=== PATIENT | female | born 1980 | race Caucasian/White ===

== ENCOUNTER 2017-09-06 12:14 | Emergency (ER) | payer BC, OTHER ==
--- NOTE | 2017-09-06 13:53 | EDM.PDOC ---
ED HPI GENERAL MEDICAL PROBLEM - General Chief Complaint: Cardiovascular Problem Stated Complaint: R LEG HAS BLOODCLOT Time Seen by Provider: 09/06/17 12:21 Source of Information: Reports: Patient History Limitations: Reports: No Limitations - History of Present Illness INITIAL COMMENTS - FREE TEXT/NARRATIVE: The patient presents with right leg pain and edema. She is currently 10weeks gestation with a LNMP of around June 23. She is . She had an US done last Tuesday in [place] and she was found to have superficial thrombophlebitis. She was not put on any meds just conservative treatment. She has noticed more pain and edema. She has a history of vericose veins and one of them is palpable in the lower leg. She has no chest pain or shortness of breath. She has no history of DVT. 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: Other (see below) Other Treatments OIL AND GAS SUPERINTENDENT: none Right Leg Pain Score (Numeric/FACES): 8 - Related Data Allergies Allergy/AdvReac Type Severity Reaction Status Date / Time Sulfa (Sulfonamide Allergy Rash Verified 09/06/17 12:26 Antibiotics) Home Meds: Home Meds Venlafaxine [Effexor] 75 mg PO DAILY 09/06/17 [History] Past Medical History Psychiatric History: Reports: Anxiety - Past Surgical History GI Surgical History: Reports: Cholecystectomy Social & Family History - Tobacco Use Smoking Status *Q: Never Smoker - Caffeine Use Caffeine Use: Reports: Coffee, Soda - Recreational Drug Use Recreational Drug Use: No ED ROS GENERAL - Review of Systems Review Of Systems: See Below Constitutional: Reports: No Symptoms HEENT: Reports: No Symptoms Respiratory: Reports: No Symptoms Cardiovascular: Reports: No Symptoms Endocrine: Reports: No Symptoms GI/Abdominal: Reports: No Symptoms : Reports: No Symptoms Musculoskeletal: Reports: Other (Right leg edema and pain) ED EXAM, GENERAL - Physical Exam Exam: See Below Exam Limited By: No Limitations General Appearance: Alert, No Apparent Distress Ears: Normal External Exam Nose: Normal Inspection Head: Atraumatic, Normocephalic Neck: Normal Inspection Respiratory/Chest: No Respiratory Distress, Lungs Clear, Normal Breath Sounds Cardiovascular: Regular Rate, Rhythm, No Edema, No Murmur GI/Abdominal: Soft, Non-Tender, No Organomegaly, No Mass Back Exam: Normal Inspection Extremities: Other (Palpable vericose vein in the right lower leg that is warm but there is no erythema. Mild edema to her right leg.) Course - Vital Signs Last Recorded V/S: Last Vital Signs Temp 99.2 F 09/06/17 12:21 Pulse 84 09/06/17 12:21 Resp 20 09/06/17 12:21 BP 120/76 09/06/17 12:21 Pulse Ox 98 09/06/17 12:21 - Orders/Labs/Meds Labs: Laboratory Tests 09/06/17 Range/Units 12:50 HCG, Quant 50087.0 mIU/mL - Re-Assessments/Exams Free Text/Narrative Re-Assessment/Exam: 09/06/17 13:53 I ordered an US of her right leg and HCG. 09/06/17 14:41 Her quant HCG was 64,836. The US shows findings compatible with superficial thrombophlebitis within the medial right calf. No evidence of deep venous thrombosis is seen within the right lower extremity. I called Dr Noonan out OB/ [facility] doctor utilization engineer and he recommended the compression stockings and it was okay to start aspirin. Departure - Departure Time of Disposition: 14:55 Disposition: Home, Self-Care 01 Condition: Good Clinical Impression: Superficial thrombophlebitis during in first trimester Referrals: Lata Murphy NP [Primary Care Provider] - Davis Noonan MD [Physician] - 1 Week Forms: ED Department Discharge Additional Instructions: Wear the compression stockings as much as you can. Take 81mg of aspirin daily. Follow up with Dr Noonan in 1 week. Please return if you are worse such as more swelling, chest pain or shortness of breath.
--- NOTE | 2017-09-06 14:33 | US ---
Right lower extremity deep venous ultrasound: Duplex and color flow imaging was obtained of the right common femoral, proximal greater saphenous, superficial femoral, popliteal and posterior tibial veins. Findings: Superficial veins are identified within the medial calf showing evidence of thrombosis which is consistent with superficial thrombophlebitis. Deep veins show normal phasic flow, augmentation and compression. Impression: 1. Findings compatible with superficial thrombophlebitis within the medial right calf. 2. No evidence of deep venous thrombosis is seen within the right lower extremity. Diagnostic code #3
== END 2017-09-06 15:05 | disposition home or self-care (01) ==
LOC: MERGE 12:14 → JD.ED 12:14
DX: O22.21 Superficial thrombophlebitis in pregnancy, first trimester (principal); Z88.2 Allergy status to sulfonamides; Z3A.10 10 weeks gestation of pregnancy
CPT/HCPCS: 36415; 84702; 93971-26-RT; 93971-RT; 99283; 99284-25

== ENCOUNTER 2017-10-26 01:36 | Inpatient (IN) | payer OTHER ==
[2017-10-26] MEDS ORDERED: Misoprostol 200 MCG Tab VAG ONE (11:15)
[2017-10-26] MEDS ORDERED: Misoprostol 200 MCG Tab ONE (19:10)
[2017-10-26] MEDS ORDERED: Misoprostol 200 MCG Tab PO ONE (19:20)
[2017-10-26] MEDS ORDERED: Misoprostol 25 MCG (1/4 of 100 MCG) Tab VAG ONE (19:24)
[2017-10-26] MEDS ORDERED: Misoprostol 200 MCG Tab PO STA (19:42)
[2017-10-26] MEDS ORDERED: Sodium Chloride 0.9% 10 ML Syringe FLUSH PRN (19:43)
[2017-10-26] MEDS ORDERED: Ondansetron 4 MG/2 ML SDV IVPUSH PRN (19:43)
[2017-10-26] MEDS ORDERED: Sodium Chloride 0.9% 1,000 ML IV SCH (19:45)
--- NOTE | 2017-10-26 19:46 | PCM.LDHP ---
L&D History of Present Illness - General Date of Service: 10/26/17 Admit Problem/Dx: Patient Status Order with Admit Dx/Problem 10/26/17 19:43 Patient Status [ADT] Routine Admission Diagnosis/Problem Admission Diagnosis/Problem demise due to miscarriage Source of Information: Patient History Limitations: Reports: No Limitations - History of Present Illness Introduction:: Patient is a 37 y/o at ~16 weeks gestation who presents for IOL for demise. Doing well since last seen in clinic. Some cramping, but no bleeding. 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 (Approximate): Psychiatric History: Reports: Anxiety - Past Surgical History GI Surgical History: Reports: Cholecystectomy Social & Family History - Tobacco Use Smoking Status *Q: Never Smoker - Caffeine Use Caffeine Use: Reports: Coffee, Soda - Alcohol Use Alcohol Use History: No - Recreational Drug Use Recreational Drug Use: No H&P Review of Systems - Review of Systems: Review Of Systems: See Below General: Reports: No Symptoms Pulmonary: Reports: No Symptoms Cardiovascular: Reports: No Symptoms Gastrointestinal: Reports: No Symptoms Genitourinary: Reports: No Symptoms Musculoskeletal: Reports: No Symptoms Psychiatric: Reports: No Symptoms L&D Exam - Exam Exam: See Below - Vital Signs Vital Signs: Last Vital Signs Temp 36.9 C 10/26/17 19:14 Pulse 83 10/26/17 19:14 Resp 16 10/26/17 19:14 BP 119/64 10/26/17 19:14 Pulse Ox 100 10/26/17 19:14 Weight: 84.414 kg - Flood Score Flood Score Cervix Position: Posterior Flood Score Consistency: Medium Flood Score Dilation: Closed - Exam General: Alert, Oriented, Cooperative Lungs: Clear to Auscultation, Normal Respiratory Effort Cardiovascular: Regular Rate, Regular Rhythm GI/Abdominal Exam: Soft, Non-Tender Genitourinary: Normal external exam Extremities: Normal Inspection Skin: Warm, Dry, Intact - Patient Data Result Diagrams: 10/26/17 19:43 - Problem List (1) demise before 20 weeks with retention of fetus SNOMED Code(s): 526380900 ICD Code: O02.1 - MISSED Status: Acute Problem List Initiated/Reviewed/Updated: Yes Orders Last 24hrs: Active Orders 24 hr Category Date Time Status Patient Status [ADT] Routine ADT 10/26/17 19:43 Ordered Peripheral IV Care [RC] . DIRECTED Care 10/26/17 19:45 Ordered Vital Signs [RC] PER UNIT ROUTINE Care 10/26/17 19:43 Ordered Regular Diet [DIET] Diet 10/27/17 Breakfast Ordered CBC W/O DIFF,HEMOGRAM [HEME] Routine Lab 10/26/17 19:43 Ordered TYPE AND SCREEN [BBK] Routine Lab 10/26/17 19:43 Ordered Ondansetron [Zofran] Med 10/26/17 19:43 Ordered 4 mg IVPUSH Q6H PRN Sodium Chloride 0.9% @ 125 MLS/HR (1,000ml) Med 10/26/17 19:45 Ordered Sodium Chloride 0.9% [Normal Saline] 1,000 ml IV ASDIRECTED Sodium Chloride 0.9% [Saline Flush] Med 10/26/17 19:43 Ordered 10 ml FLUSH ASDIRECTED PRN miSOPROStol [Cytotec] Med 10/26/17 23:30 Ordered 400 mcg VAG Q4H miSOPROStol [Cytotec] Med 10/26/17 19:42 Stat 600 mcg PO NOW STA Peripheral IV Insertion Adult [OM.PC] Routine Oth 10/26/17 19:43 Ordered Medication Orders Sodium Chloride (Normal Saline) 1,000 mls @ 125 mls/hr IV ASDIRECTED JOI Misoprostol (Cytotec) 600 mcg PO NOW STA Stop: 10/26/17 19:43 Misoprostol (Cytotec) 400 mcg VAG Q4H JOI Ondansetron HCl (Zofran) 4 mg IVPUSH Q6H PRN PRN Reason: Nausea/Vomiting Sodium Chloride (Saline Flush) 10 ml FLUSH ASDIRECTED PRN PRN Reason: Keep Vein Open Assessment/Plan Comment:: 37 y/o at ~16 wks presents for IOL for demise. Aware of risks of IOL including failed induction and retained placenta requiring D&C. Desires to proceed. IOL to be done with Cytotec. Pain control per patient preference. Declines work up for loss.
[2017-10-26] MEDS ORDERED: Acetaminophen/oxyCODONE 325-5 MG Tab PO PRN (22:32)
[2017-10-26] MEDS ORDERED: Misoprostol 200 MCG Tab VAG SCH (23:30)
[2017-10-26] MEDS: Morphine 4 MG/ML Syringe IVPUSH PRN (23:49)
[2017-10-27] MEDS: Morphine 4 MG/ML Syringe IVPUSH PRN (00:18)
[2017-10-27] MEDS ORDERED: Misoprostol 200 MCG Tab VAG SCH (01:30)
[2017-10-27] MEDS ORDERED: Misoprostol 200 MCG Tab ONE (01:35)
[2017-10-27] MEDS ORDERED: Misoprostol 200 MCG Tab PO ONE (01:37)
--- NOTE | 2017-10-27 02:12 | PCM.DEL ---
L & D Note - General Info Date of Service: 10/27/17 - Delivery Note Cervical Ripening Method: Misoprostil Delivery Outcome: Miscarriage (16 weeks) Infant Delivery Method: Spontaneous Vaginal Delivery-Single Delivery Mode: Spontaneous Episiotomy Type: None Laceration: None Placenta: Spontaneous Estimated Blood Loss: 250 Delivery Comments (Free Text/Narrative):: Patient with complaints of pressure. SVE done and with bulging BOW which was incidentally ruptured. parts still felt to be high at that time. Allowed patient to continue to labor about another hour and then again felt increasing urge to push. SVE still difficult to assess, but patient instructed to attempt pushing. Baby delivered with one push intact. Cord cut and baby handed to patient. Patient given 600 mcg of buccal cytotec. After approximately 30 minutes again felt the urge to push and placenta able to be expelled intact. Exam showed no lacerations. - General Info Date of Service: 10/27/17 - Patient Data Vitals - Most Recent: Last Vital Signs Temp 36.9 C 10/26/17 19:14 Pulse 83 10/26/17 19:14 Resp 16 10/26/17 19:14 BP 119/64 10/26/17 19:14 Pulse Ox 100 10/26/17 19:14 Weight - Most Recent: 84.414 kg Lab Results Last 24 Hours: Laboratory Results - last 24 hr 10/26/17 10/26/17 Range/Units 19:43 20:02 WBC 6.85 (3.98-10.04) K/mm3 RBC 3.92 L (3.98-5.22) M/mm3 Hgb 12.3 (11.2-15.7) gm/L Hct 36.1 (34.1-44.9) % MCV 92.1 (79.4-94.8) fl MCH 31.4 (25.6-32.2) pg MCHC 34.1 (32.2-35.5) g/dl RDW Std Deviation 41.5 (36.4-46.3) fL Plt Count 206 (182-369) K/mm3 MPV 10.5 (9.4-12.3) fl Blood Type O POSITIVE Gel Antibody Screen Negative Med Orders - Current: Current Medications Sodium Chloride (Normal Saline) 1,000 mls @ 125 mls/hr IV ASDIRECTED JOI Misoprostol (Cytotec) 400 mcg VAG Q4H JOI Morphine Sulfate (Morphine) 4 mg IVPUSH Q4H PRN PRN Reason: Pain Last Admin: 10/27/17 00:18 Dose: 2 mg Ondansetron HCl (Zofran) 4 mg IVPUSH Q6H PRN PRN Reason: Nausea/Vomiting Oxycodone/Acetaminophen (Percocet 325-5 Mg) 1 - 2 tab PO Q6H PRN PRN Reason: Pain Sodium Chloride (Saline Flush) 10 ml FLUSH ASDIRECTED PRN PRN Reason: Keep Vein Open Discontinued Medications Misoprostol (Cytotec) Confirm Administered Dose 600 mcg .ROUTE .STK-MED ONE Stop: 10/26/17 19:11 Last Admin: 10/26/17 19:52 Dose: Not Given Misoprostol (Cytotec) 400 mcg VAG Q4H JOI Misoprostol (Cytotec) 600 mcg VAG ONETIME ONE Stop: 10/26/17 19:25 Last Admin: 10/26/17 19:24 Dose: 600 mcg Misoprostol (Cytotec) Confirm Administered Dose 200 mcg .ROUTE .STK-MED ONE Stop: 10/27/17 01:36 Misoprostol (Cytotec) 600 mcg PO ONETIME ONE Stop: 10/27/17 01:38 Last Admin: 10/27/17 01:36 Dose: 600 mcg - Problem List & Annotations (1) demise before 20 weeks with retention of fetus SNOMED Code(s): 579243066 Code(s): O02.1 - MISSED Status: Acute - Problem List Review Problem List Initiated/Reviewed/Updated: Yes - My Orders Last 24 Hours: My Active Orders 10/26/17 19:43 Patient Status [ADT] Routine Vital Signs [RC] PER UNIT ROUTINE Ondansetron [Zofran] 4 mg IVPUSH Q6H PRN Sodium Chloride 0.9% [Saline Flush] 10 ml FLUSH ASDIRECTED PRN Peripheral IV Insertion Adult [OM.PC] Routine 10/26/17 19:45 Peripheral IV Care [RC] . DIRECTED Sodium Chloride 0.9% [Normal Saline] 1,000 ml IV ASDIRECTED 10/26/17 22:31 Morphine 4 mg IVPUSH Q4H PRN 10/26/17 22:32 Acetaminophen/oxyCODONE [Percocet 325-5 MG] 1 - 2 tab PO Q6H PRN 10/27/17 01:30 miSOPROStol [Cytotec] 400 mcg VAG Q4H 10/27/17 Breakfast Regular Diet [DIET] - Assessment Assessment:: PPD#0 from at 16 wks after IOL for demise - Plan Plan:: * Will have family spend time with baby. When ready will call home. * Discharge later today
[2017-10-27] MEDS ORDERED: Acetaminophen 325 MG Tab PO PRN (02:21)
[2017-10-27] MEDS ORDERED: Ibuprofen 600 MG Tab PO PRN (02:21)
--- NOTE | 2017-10-27 20:28 | PCM.DCSUM1 ---
Discharge Summary - Discharge Data Discharge Date: 10/27/17 Discharge Disposition: Home, Self-Care 01 Condition: Good - Discharge Diagnosis/Problem(s) (1) demise before 20 weeks with retention of fetus SNOMED Code(s): 404194180 ICD Code: O02.1 - MISSED Status: Acute - Patient Summary/Data Complications: None Consults: None Recommended Follow-up Testing/Procedures: Follow up in 3-4 weeks for check Hospital Course: Patient is a 37 y/o who presented at about 16 weeks for IOL for demise. This was done with cytotec. She responded to well and underwent uncomplicated delivery of baby. Buccal cytotec also given to aid in delivery of the placenta. This was also uncomplicated. Patient remained in house for a period of time following delivery and did well. She was discharged home later the same day. - Patient Instructions Diet: Regular Diet as Tolerated Activity: As Tolerated Activity, Other: Pelvic Rest for 6 weeks Showering/Bathing: May Shower Showering/Bathing, Other: May Bathe Notify Provider of: Fever, Increased Pain, Swelling and Redness, Drainage, Nausea and/or Vomiting - Discharge Plan *PRESCRIPTION DRUG MONITORING PROGRAM REVIEWED*: Not Applicable *COPY OF PRESCRIPTION DRUG MONITORING REPORT IN PATIENT MARIO: Not Applicable Home Medications: Home Meds Acetaminophen [Tylenol] 650 mg PO Q4H PRN tablet 10/27/17 [Rx] Ibuprofen [Motrin] 600 mg PO Q4H PRN tablet 10/27/17 [Rx] Patient Handouts: Vaginal Delivery, Loss, Care After Referrals: Mary Vega MD [Primary Care Provider] - (3-4 weeks ) - Discharge Summary/Plan Comment DC Time >30 min.: No - Patient Data Vitals - Most Recent: Last Vital Signs Temp 36.9 C 10/26/17 19:14 Pulse 75 10/27/17 05:30 Resp 16 10/26/17 19:14 BP 119/64 10/26/17 19:14 Pulse Ox 95 10/27/17 05:30 Weight - Most Recent: 84.414 kg Lab Results - Last 24 hrs: Laboratory Results - last 24 hr 10/26/17 10/26/17 Range/Units 19:43 20:02 WBC 6.85 (3.98-10.04) K/mm3 RBC 3.92 L (3.98-5.22) M/mm3 Hgb 12.3 (11.2-15.7) gm/L Hct 36.1 (34.1-44.9) % MCV 92.1 (79.4-94.8) fl MCH 31.4 (25.6-32.2) pg MCHC 34.1 (32.2-35.5) g/dl RDW Std Deviation 41.5 (36.4-46.3) fL Plt Count 206 (182-369) K/mm3 MPV 10.5 (9.4-12.3) fl Blood Type O POSITIVE Gel Antibody Screen Negative Med Orders - Current: Current Medications Discontinued Medications Acetaminophen (Tylenol) 650 mg PO Q4H PRN PRN Reason: mild pain or fever Sodium Chloride (Normal Saline) 1,000 mls @ 125 mls/hr IV ASDIRECTED JOI Ibuprofen (Motrin) 600 mg PO Q4H PRN PRN Reason: Mild pain or fever Last Admin: 10/27/17 02:39 Dose: 600 mg Misoprostol (Cytotec) Confirm Administered Dose 600 mcg .ROUTE .STK-MED ONE Stop: 10/26/17 19:11 Last Admin: 10/26/17 19:52 Dose: Not Given Misoprostol (Cytotec) 400 mcg VAG Q4H JOI Misoprostol (Cytotec) 400 mcg VAG Q4H JOI Last Admin: 10/27/17 05:04 Dose: Not Given Misoprostol (Cytotec) 600 mcg VAG ONETIME ONE Stop: 10/26/17 19:25 Last Admin: 10/26/17 19:24 Dose: 600 mcg Misoprostol (Cytotec) Confirm Administered Dose 200 mcg .ROUTE .STK-MED ONE Stop: 10/27/17 01:36 Last Admin: 10/27/17 05:04 Dose: Not Given Misoprostol (Cytotec) 600 mcg PO ONETIME ONE Stop: 10/27/17 01:38 Last Admin: 10/27/17 01:36 Dose: 600 mcg Morphine Sulfate (Morphine) 4 mg IVPUSH Q4H PRN PRN Reason: Pain Last Admin: 10/27/17 00:18 Dose: 2 mg Ondansetron HCl (Zofran) 4 mg IVPUSH Q6H PRN PRN Reason: Nausea/Vomiting Oxycodone/Acetaminophen (Percocet 325-5 Mg) 1 - 2 tab PO Q6H PRN PRN Reason: Pain Sodium Chloride (Saline Flush) 10 ml FLUSH ASDIRECTED PRN PRN Reason: Keep Vein Open
== END 2017-10-27 11:15 | disposition home or self-care (01) | DRG 779 ==
LOC: JD.OB 01:36 → OBSVTOIN 10-27 01:36 → JD.OB 10-27 01:37
PROVIDERS: ADMIT Obstetrics & Gynecology; ATTEND Obstetrics & Gynecology
PROC: 10E0XZZ Delivery of Products of Conception, External Approach (ICD-10-PCS; principal; 2017-10-27)
PROC: 3E0P7VZ Introduction of Hormone into Female Reproductive, Via Natural or Artificial Opening (ICD-10-PCS; 2017-10-27)
DX: O02.1 Missed abortion (principal); Z88.2 Allergy status to sulfonamides; Z90.49 Acquired absence of other specified parts of digestive tract; Z3A.16 16 weeks gestation of pregnancy
CPT/HCPCS: 36415; 59409; 85027; 86850; 86900; 86901; A9270-GY; J2270